=== PATIENT | male | born 1940 | race Caucasian/White ===

== ENCOUNTER → 2017-11-19 | Outpatient (CLI) | payer OTHER ==
[2016-11-04 16:09] VITALS: BP 133/65
[~2017-11-19] MED LIST: NS 100 ML IV 100 ML IV ONE
[2017-11-19 10:00] LABS: CREATININE 0.83 mg/dL (0.70-1.30)
--- NOTE | 2017-11-22 08:26 | CT ---
HISTORY: Follow-up abnormal chest x-ray Study: CT chest with and without contrast Comparison: Chest x-ray 11/04/2016 Technique: Axial pre and postcontrast images with coronal and sagittal reformats. Dose reduction proc edures were used with mA/kv adjusted for body size. Findings: Examination of the mediastinum demonstrated no definite evidence for mediastinal masses, enlarged lym phadenopathy, or enlarged hilar adenopathy. Mild calcific atherosclerotic changes present in a nondil ated thoracic aorta. No pleural effusions are identified. There is some pleural thickening posteriorl y on the right. Those portions of the upper abdominal organs visualized were within normal limits wit h the exception of cholelithiasis. No lytic or blastic rib or thoracic spine changes are identified. The lungs are hyperinflated consistent with COPD. No nodules, masses, alveolar infiltrates, areas of consolidation, or bronchiectasis is identified. There is diffuse peribronchial thickening consistent with bronchitis which could be acute, chronic, or both. There are some atelectatic changes and some p leural parenchymal scarring in the right lung base. IMPRESSION: COPD with diffuse peribronchial thickening consistent with bronchitis which could be acute, chronic, or both Pleuro parenchymal scarring and some minimal atelectatic change in the right lung base. Reported By:
== END ==
LOC: RAD 09:28
PROVIDERS: ATTEND Nurse Practitioner Primary Care
DX: R93.8 Abnormal findings on diagnostic imaging of other specified body structures (principal)
CPT/HCPCS: 36415; 71270; 82565; 84520; A4222